=== PATIENT | female | born 1955 | race Two or more races ===

== ENCOUNTER 2020-10-11 15:16 | Emergency (ER) | payer OTHER, BC ==
[~2020-10-11] VITALS: Ht 160 cm; Wt 68.0 kg
[2020-10-11] MEDS ORDERED: ACETAMINOPHEN650 M2 PO (20:41)
== END 2020-10-11 21:09 | disposition home or self-care (01) ==
LOC: ER 15:16
DX: L03.116 Cellulitis of left lower limb (principal); I10 Essential (primary) hypertension; Z03.818 Encounter for observation for suspected exposure to other biological agents ruled out

== ENCOUNTER 2023-06-09 11:58 | Emergency (ER) | payer OTHER, BC ==
[~2023-06-09] VITALS: Ht 154.9 cm; Wt 69.9 kg
[~2023-06-09 11:58] MED LIST: ACETAMINOPHEN650 M2 PO; ACETAMINOPHEN650 MG
== END 2023-06-09 15:43 | disposition home or self-care (01) ==
LOC: ER 11:58
PROVIDERS: General Practice
DX: R53.81 Other malaise (principal); R07.81 Pleurodynia
CPT/HCPCS: 36415; 96372; 99282; J1885

== ENCOUNTER 2024-11-16 20:04 | Emergency (ER) | payer OTHER, BC ==
[~2024-11-16] VITALS: Ht 160 cm; Wt 75.3 kg
[~2024-11-16 20:04] MED LIST changes: +ELIQUIS2.5 MG PO; +GLUMETZA500 MG; +JARDIANCE10 MG PO; +NORVASC2.5 M1 PO; +NOVOLOG100 UNIT/1 SQ; +ZESTRIL40 M1
[2024-11-16] MEDS ORDERED: CEFTRIAXONE SODIUM 1,000 MG VIAL ONE (20:40)
[2024-11-16] MEDS ORDERED: CEFTRIAXONE SODIUM 1,000 MG VIAL IV ONE (20:45)
[2024-11-16 21:03] LABS: HEMATOCRIT 34.3 % (36.0-45.00); HEMOGLOBIN 11.8 g/dL (12.0-15.00); MEAN CELL VOLUME 81.3 fL (80.00-100.00); MEAN CORPUSCULAR HGB CONC 34.4 g/dl (32.0-36.0); PLATELET COUNT 169 K/uL (150-450); RED BLOOD COUNT 4.22 M/uL (4.00-6.00); RED CELL DISTRIBUTION WIDTH 14.4 % (11.5-14.5)
[2024-11-16 21:27] LABS: CALCIUM 9.6 mg/dL (8.5-10.1); CREATININE SERUM 1.1 mg/dL (0.55-1.02); GFR 49.1; POTASSIUM 3.76 mEq/L (3.5-5.1)
== END 2024-11-16 22:36 | disposition home or self-care (01) ==
LOC: ER 20:07
PROVIDERS: Emergency Medicine
DX: L03.113 Cellulitis of right upper limb (principal); Z91.040 Latex allergy status; E11.9 Type 2 diabetes mellitus without complications; Z79.4 Long term (current) use of insulin; I10 Essential (primary) hypertension
CPT/HCPCS: 36415; 73130; 96365; 99283; J0696

== ENCOUNTER 2024-12-10 13:41 | Outpatient (CLI) | payer OTHER, BC | END 2024-12-10 13:50 | disposition home or self-care (01) | LOC: RAD 13:41 | DX: M25.572 Pain in left ankle and joints of left foot (principal); M25.571 Pain in right ankle and joints of right foot; M79.672 Pain in left foot; M79.671 Pain in right foot ==

== ENCOUNTER → 2024-12-13 14:14 | Outpatient (CLI) | payer OTHER, BC ==
[2024-12-13 15:50] LABS: BLOOD UREA NITROGEN 14 mg/dL (7-18); PHOSPHOROUS 3.1 mg/dL (2.5-4.9)
[2024-12-13 16:29] LABS: C-REACTIVE PROTEIN < 0.29 MG/DL (0.00-0.29); URIC ACID 4.6 mg/dL (2.5-7.5)
== END | disposition home or self-care (01) ==
LOC: LAB 14:14 → RAD 14:14
DX: E03.9 Hypothyroidism, unspecified (principal); E83.52 Hypercalcemia; E87.8 Other disorders of electrolyte and fluid balance, not elsewhere classified; R94.4 Abnormal results of kidney function studies; M36.8 Systemic disorders of connective tissue in other diseases classified elsewhere

== ENCOUNTER 2024-12-25 17:35 | Inpatient (IN) | payer OTHER ==
[~2024-12-25] VITALS: Ht 162.6 cm; Wt 68.0 kg
[2024-12-25] MEDS ORDERED: KETOROLAC TROMETHAMINE 30 MG VIAL IU ONE (18:15)
[2024-12-25] MEDS ORDERED: 0.9 % SODIUM CHLORIDE 1,000 ML IV ONE (18:15)
[2024-12-25] MEDS ORDERED: INSULIN REGULAR, HUMAN 1,000 UNIT/10 ML UNITS IV ONE (18:15)
[2024-12-25 18:58] LABS: HEMOGLOBIN 12.5 g/dL (12.0-15.00); MEAN CELL VOLUME 82.7 fL (80.00-100.00); MEAN CORPUSCULAR HEMOGLOBIN 27.9 pg (27.00-32.0); MEAN CORPUSCULAR HGB CONC 33.8 g/dl (32.0-36.0); PLATELET COUNT 168 K/uL (150-450); RED BLOOD COUNT 4.48 M/uL (4.00-6.00); RED CELL DISTRIBUTION WIDTH 14.2 % (11.5-14.5)
[2024-12-25 19:02] LABS: PH,URINE 6.5 (5.0-8.0); URINE APPEARANCE Clear; URINE BILIRRUBIN Negative (NEGATIVE); URINE BLOOD Negative; URINE COLOR Yellow; URINE KETONE Negative (NEGATIVE); URINE LEUKOCYTE Small; URINE NITRATE Negative; URINE PROTEIN Negative (NEGATIVE); URINE UROBILINOGEN 0.2 E.U./dl
[2024-12-25 19:18] LABS: URINE BACTERIA 337.7 uL (0.0-1933); URINE EPITHELIAL CELLS 21.9 uL (0.0-38.8); URINE RBC 6.6 uL (0.0-20.8); URINE WBC 95.4 uL (0.0-23.2)
[2024-12-25 19:22] LABS: ALBUMIN 4.1 gm/dL (3.4-5.0); BILIRUBIN TOTAL 0.53 mg/dL (0.3-1.2); CALCIUM 9.8 mg/dL (8.5-10.1); CREATININE SERUM 1.02 mg/dL (0.55-1.02); GFR 53.57; GLOBULINA 3.8 G/DL (2.4-3.5); POTASSIUM 3.96 mEq/L (3.5-5.1); TOTAL PROTEIN 7.9 gm/dL (6.4-8.2)
[2024-12-25 19:28] LABS: URINE CAST 0.14 uL (0.0-1.40); URINE GLUCOSE >=1000 MG/DL (NEGATIVE)
[2024-12-25] MEDS ORDERED: 0.9 % SODIUM CHLORIDE 1,000 ML IV SCH (21:15)
[2024-12-25] MEDS ORDERED: INSULIN LISPRO 1,000 UNIT/10 ML UNITS SUBCUTANEO PRN (21:15)
[2024-12-25] MEDS ORDERED: KETOROLAC TROMETHAMINE 15 MG VIAL IU PRN (21:15)
[2024-12-25] MEDS ORDERED: DEXTROSE 50 % IN WATER 0.5 G/ML DISP.SYRIN IV PRN (21:15)
[2024-12-25] MEDS ORDERED: ACETAMINOPHEN 325 MG TABLET PO PRN (21:15)
[2024-12-26 06:00] VITALS: BP 184/80; O2SAT 97
[2024-12-26] MEDS ORDERED: ENALAPRILAT DIHYDRATE 1.25 MG/ML VIAL IV STA (07:40)
[2024-12-26] MEDS ORDERED: APIXABAN 2.5 MG TABLET PO SCH (09:00)
[2024-12-26] MEDS ORDERED: LISINOPRIL 20 MG TABLET PO SCH (09:00)
[2024-12-26] MEDS ORDERED: INSULIN LISPRO 1,000 UNIT/10 ML UNITS SUBCUTANEO PRN (09:45)
[2024-12-26] MEDS ORDERED: DEXTROSE 50 % IN WATER 0.5 G/ML DISP.SYRIN IV PRN (09:45)
[2024-12-26 14:40] VITALS: BP 205/123; O2SAT 100
[2024-12-26] MEDS ORDERED: ACETAMINOPHEN 500 MG GEL..CAP PO PRN (15:15)
[2024-12-26] MEDS ORDERED: KETOROLAC TROMETHAMINE 30 MG VIAL IV PRN (15:15)
[2024-12-26 16:00] VITALS: BP 184/97; O2SAT 97
[2024-12-26] MEDS ORDERED: ENALAPRILAT DIHYDRATE 2.5 MG/2 ML VIAL IV PRN (17:15)
[2024-12-26] MEDS ORDERED: AMLODIPINE BESYLATE 2.5 MG TABLET PO SCH ×2 (21:00)
[2024-12-26] MEDS ORDERED: INSULIN GLARGINE,HUM.REC.ANLOG 1,000 UNITS/10 ML UNITS SUBCUTANEO SCH (22:00)
[2024-12-27 00:16] VITALS: BP 168/82; O2SAT 99
[2024-12-27 07:04] LABS: CALCIUM 9.3 mg/dL (8.5-10.1); CREATININE SERUM 0.81 mg/dL (0.55-1.02); GFR 69.9; POTASSIUM 3.76 mEq/L (3.5-5.1)
[2024-12-27] MEDS ORDERED: ENALAPRILAT DIHYDRATE 1.25 MG/ML VIAL IV PRN (07:15)
[2024-12-27 08:00] VITALS: BP 184/104; O2SAT 98
[2024-12-27] MEDS ORDERED: LISINOPRIL 40 MG TABLET PO SCH (09:00)
[2024-12-27] MEDS ORDERED: HYDROCHLOROTHIAZIDE 25 MG TABLET PO SCH (09:00)
[2024-12-27 09:55] VITALS: BP 128/76
[2024-12-27 17:05] VITALS: BP 154/74; O2SAT 96
[2024-12-27] MEDS ORDERED: AMLODIPINE BESYLATE 10 MG TABLET PO SCH (21:00)
[2024-12-28 00:14] VITALS: BP 138/86; O2SAT 98
[2024-12-28 08:00] VITALS: BP 144/82; O2SAT 97
[2024-12-28 16:58] VITALS: BP 156/80; O2SAT 95
== END 2024-12-28 19:36 | disposition home or self-care (01) | DRG 605 ==
LOC: ER 17:38 → SEC-K 21:32 → SURH 21:32 → MEDJ 12-26 01:01 → SURH 12-26 04:27
PROVIDERS: General Practice; ADMIT Student in an Organized Health Care Education/Training Program; ATTEND Student in an Organized Health Care Education/Training Program
PROC: B24BZZZ Ultrasonography of Heart with Aorta (ICD-10-PCS; 2024-12-26)
PROC: 4A12X4Z Monitoring of Cardiac Electrical Activity, External Approach (ICD-10-PCS; principal; 2024-12-27)
DX: S40.022A Contusion of left upper arm, initial encounter (principal); I25.810 Atherosclerosis of coronary artery bypass graft(s) without angina pectoris; V03.09XA Pedestrian with other conveyance injured in collision with car, pick-up truck or van in nontraffic accident, initial encounter; Y93.01 Activity, walking, marching and hiking; Y92.410 Unspecified street and highway as the place of occurrence of the external cause; Z95.1 Presence of aortocoronary bypass graft